=== PATIENT | female | born 1995 | race Caucasian/White ===

== ENCOUNTER 2017-03-23 18:06 | Inpatient (IN) | payer MEDICAID ==
[~2017-03-23] VITALS: Ht 157.5 cm; Wt 119.7 kg
[2017-03-23 18:59] LABS: CALCIUM 8.8 mg/dL (8.5-10.1); CARBON DIOXIDE 20.3 mmol/L (21-32); CHLORIDE SERUM 103 mmol/L (98-107); CREATININE SERUM 0.9 mg/dL (0.6-1.0); GFR1 > 60 mL/min; GLUCOSE SERUM 146 mg/dL (74-106); POTASSIUM SERUM 3.6 mmol/L (3.5-5.1); SODIUM SERUM 140 mmol/L (136-145)
[2017-03-23 19:03] LABS: ALBUMIN 3.9 g/dL (3.4-5.0); ALKALINE PHOSPHATASE 125 U/L (46-116); ALT/SGPT 25 U/L (14-59); AMYLASE 44 U/L (25-115); AST/SGOT 10 U/L (15-37); BILIRUBIN TOTAL 0.55 mg/dL (0.20-1.00); LIPASE 106 IU/L (73-393); PLATELET COUNT 378 x10^3mcL (130-400)
[2017-03-23 19:05] LABS: TOTAL PROTEIN, SERUM 8.4 g/dL (6.4-8.2)
[2017-03-23 19:12] LABS: RED CELL DISTRIBUTION WIDTH 15.4 % (11.5-14.5)
[2017-03-23 19:21] LABS: BAND NEUTROPHIL 3 % (0-10); BASOPHIL 0 % (0-2); MONOCYTE 3 % (0-7); PLATELET MORPHOLOGY PLATELETS NORMAL; SEGMENTED NEUTROPHILS 89 % (37-75)
[2017-03-23 23:25] VITALS: BP 128/56
[2017-03-23 23:52] LABS: CHOLESTEROL/HDL RATIO 4.8
[2017-03-23 23:59] LABS: FREE T4 1.08 ng/dL (0.76-1.46); FREE THYROXINE INDEX 2.5 ug/dL (1.4-4.5); T4(THYROXINE) 7.7 ug/dL (4.7-13.3)
[2017-03-24 00:17] LABS: T3 TOTAL 1.17 ng/mL
[2017-03-24 05:49] VITALS: BP 116/61
[2017-03-24 06:17] LABS: CALCIUM 7.5 mg/dL (8.5-10.1); CARBON DIOXIDE 24.9 mmol/L (21-32); CHLORIDE SERUM 105 mmol/L (98-107); CREATININE SERUM 0.7 mg/dL (0.6-1.0); GFR1 > 60 mL/min; GLUCOSE SERUM 105 mg/dL (74-106); MAGNESIUM 1.6 mg/dL (1.8-2.4); PHOSPHOROUS 3.2 mg/dL (2.5-4.9); POTASSIUM SERUM 3.5 mmol/L (3.5-5.1); SODIUM SERUM 139 mmol/L (136-145)
[2017-03-24 07:08] LABS: BASOPHIL % 0.1 % (0-2); PLATELET COUNT 301 x10^3mcL (130-400)
[2017-03-24 07:25] LABS: AMPHETAMINE QUAL UR NONE DETECTED (NEG <=1000)
[2017-03-24 07:32] LABS: RED CELL DISTRIBUTION WIDTH 15.5 % (11.5-14.5)
[2017-03-24 07:49] LABS: UA SPECIFIC GRAVITY 1.025 (1.005-1.035); microscopic required? YES; urine erythrocyte NEGATIVE (NEGATIVE)
[2017-03-24 09:50] VITALS: BP 99/58
[2017-03-24 17:10] VITALS: BP 108/62
== END 2017-03-24 19:18 | disposition left against medical advice (07) | DRG 249 ==
LOC: ED 18:06 → MU 22:53 → DU 22:53 → MU 03-24 09:40
PROVIDERS: Emergency Medicine; ADMIT Family Medicine
DX: K52.9 Noninfective gastroenteritis and colitis, unspecified (principal); Z68.42 Body mass index [BMI] 45.0-49.9, adult; E86.0 Dehydration; R73.03 Prediabetes; E83.51 Hypocalcemia; E83.42 Hypomagnesemia; D72.829 Elevated white blood cell count, unspecified; F12.10 Cannabis abuse, uncomplicated; E78.2 Mixed hyperlipidemia
CPT/HCPCS: 82962; 83880; 84439; 87046; 87046-59; G0480; J2405; J3010; J3475; J7030; Q0092; Q0162; Q9967

== ENCOUNTER 2017-06-07 19:43 | Emergency (ER) | payer MEDICAID ==
[2017-06-07 21:04] LABS: BASOPHIL % 0.4 % (0-2)
[2017-06-07 21:07] LABS: PLATELET COUNT 401 x10^3mcL (130-400); RED CELL DISTRIBUTION WIDTH 15.3 % (11.5-14.5)
[2017-06-07 21:17] LABS: CALCIUM 8.8 mg/dL (8.5-10.1); CARBON DIOXIDE 28.4 mmol/L (21-32); CHLORIDE SERUM 105 mmol/L (98-107); CREATININE SERUM 0.5 mg/dL (0.6-1.0); GFR1 > 60 mL/min; GLUCOSE SERUM 95 mg/dL (74-106); POTASSIUM SERUM 3.7 mmol/L (3.5-5.1); SODIUM SERUM 141 mmol/L (136-145)
[2017-06-07 21:20] LABS: ALBUMIN 3.6 g/dL (3.4-5.0); ALKALINE PHOSPHATASE 99 U/L (46-116); ALT/SGPT 19 U/L (14-59); AMYLASE 30 U/L (25-115); AST/SGOT 8 U/L (15-37); BILIRUBIN TOTAL 0.2 mg/dL (0.20-1.00); LIPASE 80 IU/L (73-393); TOTAL PROTEIN, SERUM 7.6 g/dL (6.4-8.2)
[2017-06-07 22:02] LABS: microscopic required? YES
[2017-06-07 22:03] LABS: urine erythrocyte TRACE (NEGATIVE)
[2017-06-07 22:58] VITALS: BP 115/80
== END 2017-06-07 22:51 | disposition home or self-care (01) ==
LOC: ED 19:43
PROVIDERS: Emergency Medicine
DX: R10.32 Left lower quadrant pain (principal)
CPT/HCPCS: 36415; J2270; Q0162

== ENCOUNTER 2017-06-08 13:20 | Emergency (ER) | payer MEDICAID ==
[~2017-06-08] VITALS: Ht 160 cm; Wt 108.4 kg
[2017-06-08 13:23] VITALS: BP 131/81
== END 2017-06-08 14:39 | disposition home or self-care (01) ==
LOC: ED 13:20
DX: B34.9 Viral infection, unspecified (principal); J02.9 Acute pharyngitis, unspecified; R73.03 Prediabetes

== ENCOUNTER 2017-07-04 18:45 | Emergency (ER) | payer MEDICAID ==
[2017-07-04 21:15] VITALS: BP 144/77
== END 2017-07-04 21:15 | disposition home or self-care (01) ==
LOC: ED 18:45
DX: J20.9 Acute bronchitis, unspecified (principal); J01.90 Acute sinusitis, unspecified
CPT/HCPCS: J0696

== ENCOUNTER 2017-07-27 18:12 | Emergency (ER) | payer MEDICAID ==
[2017-07-27 20:45] VITALS: BP 137/80
== END 2017-07-27 20:45 | disposition home or self-care (01) ==
LOC: ED 18:12
DX: K59.00 Constipation, unspecified (principal); K64.8 Other hemorrhoids

== ENCOUNTER 2017-07-28 18:11 | Emergency (ER) | payer MEDICAID ==
[2017-07-28 21:02] LABS: CARBON DIOXIDE 28.8 mmol/L (21-32); CHLORIDE SERUM 103 mmol/L (98-107); CREATININE SERUM 0.6 mg/dL (0.6-1.0); GFR1 > 60 mL/min; GLUCOSE SERUM 89 mg/dL (74-106); POTASSIUM SERUM 4.1 mmol/L (3.5-5.1); SODIUM SERUM 139 mmol/L (136-145)
[2017-07-28 21:06] LABS: ALKALINE PHOSPHATASE 121 U/L (46-116); ALT/SGPT 45 U/L (14-59); AST/SGOT 22 U/L (15-37); BILIRUBIN TOTAL 0.2 mg/dL (0.20-1.00); LIPASE 94 IU/L (73-393); TOTAL PROTEIN, SERUM 6.7 g/dL (6.4-8.2)
[2017-07-28 21:08] LABS: ALBUMIN 2.7 g/dL (3.4-5.0)
[2017-07-28 21:18] LABS: BASOPHIL % 0.4 % (0-2); PLATELET COUNT 262 x10^3mcL (130-400)
[2017-07-28 21:20] LABS: RED CELL DISTRIBUTION WIDTH 15.1 % (11.5-14.5)
[2017-07-28 22:49] VITALS: BP 101/50
== END 2017-07-28 22:49 | disposition home or self-care (01) ==
LOC: ED 18:11
PROVIDERS: Emergency Medicine
DX: R10.30 Lower abdominal pain, unspecified (principal); N39.0 Urinary tract infection, site not specified; R05 Cough; R51 Headache
CPT/HCPCS: 82962; J2270; J2405; J7030

== ENCOUNTER 2018-06-29 17:11 | Emergency (ER) | payer MEDICAID ==
[~2018-06-29] VITALS: Ht 160 cm; Wt 112.5 kg
[2018-06-29 19:00] VITALS: BP 154/103
== END 2018-06-29 19:00 | disposition home or self-care (01) ==
LOC: ED 17:11
DX: L03.112 Cellulitis of left axilla (principal); L29.9 Pruritus, unspecified